=== PATIENT | male | born 1960 | race Native Hawaiian/Other Pacific Islander ===

== ENCOUNTER → 2024-04-02 | Outpatient (CLI) | payer OTHER, SELFPAY ==
[2024-04-02 08:56] LABS: Alanine Aminotransferase 30 U/L (10-49); Albumin, Serum 4.5 gm/dL (3.4-4.8); Alkaline Phosphatase 82 U/L (46-116); Aspartate Amino Transferase 20 U/L (0-34); Bilirubin,Direct 0.3 mg/dL (0.0-0.3); Bilirubin,Total 0.8 mg/dL (0.3-1.2); Cardiac Risk Estimate 4.9 RATIO (4.0-6.7); Cholesterol 147 mg/dL (132-200); HDL Cholesterol 30 mg/dL (40-60); LDL Cholesterol,Calculated 95 mg/dL (0-130); Triglycerides 110 mg/dL (30-150)
== END | disposition home or self-care (01) ==
PROVIDERS: PCP Internal Medicine; Referring Provider Internal Medicine Cardiovascular Disease; Visit Provider Internal Medicine Cardiovascular Disease
DX: I22.2 Subsequent non-ST elevation (NSTEMI) myocardial infarction (principal); E78.00 Pure hypercholesterolemia, unspecified; Z95.5 Presence of coronary angioplasty implant and graft
CPT/HCPCS: 36415; 80061; 80076

== ENCOUNTER → 2025-04-28 | Outpatient (CLI) | payer MEDICARE, SELFPAY ==
--- NOTE | 2025-04-28 | XR_ITS ---
Upright PA and lateral chest film on 04/28/2025 at 11:48 a.m. Comparison study 01/29/2024 INDICATION: Cough for 1 week Heart size and configuration are normal. There is mild is moderate tortuosity and elongation of the thoracic aorta probably related to hypertensive cardiovascular disease. Both lungs are well expanded and clear there is no pleural fluid on either side surgical clips are seen in the gallbladder fossa. I suspect mild but definite osteoporosis in the bones IMPRESSION: 1. No acute cardiopulmonary disease, lungs are clear 2. Heart size is normal, there is elongation and tortuosity of the thoracic aorta probably related to hypertensive cardiovascular disease 3. There is mild but definite coronary artery calcification noted on the lateral film
== END | disposition home or self-care (01) ==
LOC: CDIM 11:27
DX: I51.7 Cardiomegaly (principal); I25.10 Atherosclerotic heart disease of native coronary artery without angina pectoris
CPT/HCPCS: 71046